=== PATIENT | male | born 1980 | race Caucasian/White ===

== ENCOUNTER 2017-01-14 10:35 | Emergency (ER) | payer SELFPAY ==
[~2017-01-14] VITALS: Ht 180.3 cm; Wt 85.0 kg
[~2017-01-14 10:35] MED LIST: HYDR-3533 PO; NAPR-576 PO; TAMS0.4C67 PO
[2017-01-14 10:37] VITALS: BP 116/72; PULSE 88; RESP 12; TEMP 97.8; O2SAT 96
[2017-01-14] MEDS ORDERED: IBUP800T23 PO (11:28)
[2017-01-14] MEDS ORDERED: CEPH-460 PO (11:28)
[2017-01-14] MEDS ORDERED: BACT800T5 PO (11:28)
[2017-01-14] MEDS ORDERED: CEPHALEXIN MONOHYDRATE 500 MG CAP PO ONE (11:30)
[2017-01-14] MEDS ORDERED: SULFAMETHOXAZOLE-TRIMETHOPRIM DS 800-160 MG TAB PO ONE (11:30)
[2017-01-14] MEDS ORDERED: IBUPROFEN 800 MG TAB PO ONE (11:30)
--- NOTE | 2017-01-14 11:30 | PD ---
HPI Chief Complaint: Skin Problem Time Seen by Provider: 11:25 Travel History International Travel<30 days: No Contact w/Intl Traveler<30days: No Traveled to known affect area: No History of Present Illness HPI 36-year-old male presents to the emergency department for evaluation of area of erythema to his upper groin area that started yesterday. He states it is tender. He states he had chills last night, but denies any documented fevers. He is currently afebrile. Patient does report a history of a spider bite to his right lower leg in the past. Patient denies any IV drug use. Patient denies having any chronic medical problems or taking any prescribed medications. He denies any drainage from the area. No other complaints. PFSH Past Medical History ADHD: Yes Bipolar Disorder: Yes Anxiety: Yes Depression: Yes Cardiovascular Problems: Yes (PALPATIONS) Diabetes: No Diminished Hearing: No Psychiatric: Yes Immunizations Current: Yes Migraines: Yes Seizures: Yes (FROM DETOX) Past Surgical History Tonsillectomy: Yes Social History Alcohol Use: No (PT STATES SOBER X1 MONTH) Tobacco Use: Yes (1 PPD) Substance Use: No (PT STATES SOBER X1 MONTH) Allergies-Medications (Allergen,Severity, Reaction): Coded Allergies: No Known Allergies (Verified , 01/14/17) Reported Meds & Prescriptions Reported Meds & Active Scripts Active Review of Systems Except as stated in HPI: all other systems reviewed are Neg Physical Exam Narrative GENERAL: Well-developed well-nourished male patient, ambulatory. Afebrile. SKIN: Warm and dry. Patient has an 8 cm x 6 cm area of erythema to the upper groin without fluctuance. HEAD: Normocephalic. Atraumatic. EYES: No scleral icterus. No injection or drainage. NECK: Supple, trachea midline. No JVD or lymphadenopathy. CARDIOVASCULAR: Regular rate and rhythm without murmurs, gallops, or rubs. RESPIRATORY: Breath sounds equal bilaterally. No accessory muscle use. Lungs sounds are clear to auscultation. GASTROINTESTINAL: Abdomen soft, non-tender, nondistended. MUSCULOSKELETAL: No cyanosis, or edema. BACK: Nontender without obvious deformity. No CVA tenderness. Data Data Last Documented VS Vital Signs Date Time Temp Pulse Resp B/P Pulse Ox O2 Delivery O2 Flow Rate FiO2 01/14/17 10:37 97.8 88 12 116/72 96 Room Air Orders Sulfamet-Trimeth Ds 800-160 Mg (Bactrim (01/14/17 11:30) Cephalexin (Keflex) (01/14/17 11:30) Ibuprofen (Motrin) (01/14/17 11:30) MDM Medical Decision Making Medical Screen Exam Complete: Yes Emergency Medical Condition: Yes Medical Record Reviewed: Yes Differential Diagnosis Cellulitis versus abscess versus cyst Narrative Course 36-year-old male presents to the emergency department for evaluation of an area of redness to his upper groin that started yesterday. Physical exam is consistent with cellulitis. There is no evidence of abscess on physical exam. Area is marked with a skin marker. He is given first dose of Bactrim and Keflex in the emergency department. He is instructed to return for any acute worsening of symptoms or if he notices any fluctuance that could be drained. Patient will be discharged with a prescription for Bactrim and Keflex as well as ibuprofen for pain. The patient is agreeable to this plan. The patient was discharged in stable condition with instructions, including return instructions and follow up instructions. Diagnosis Primary Impression: Cellulitis Qualified Code: L03.818 - Cellulitis of other specified site Referrals: Primary Care Physician call for appointment Patient Instructions: Cellulitis (ED), General Instructions Departure Forms: Tests/Procedures, Work Release Enter return to work date: Jan 16, 2017 Additional Instructions: Take antibiotics as directed until gone. Bactrim is free at [facility] (formerly [facility] Keflex is $4 at [facility]. Take ibuprofen as directed as needed with food for pain. Clean twice daily with soap and water. Warm, moist compresses. Follow-up with a primary care physician. Return to the emergency department for any acute worsening of symptoms including spreading of redness, abscess formation, fever. Med/Other Pt SpecificInfo: Prescription(s) given Scripts Ibuprofen 800 Mg [id number] Mg PO TID PRN (PAIN SCALE 1 TO 10) #21 TAB Ref 0 Prov:Georgette Conte 01/14/17 Cephalexin (Keflex)500 Mg [id number] Mg PO Q6H 10 Days Ref 0 Prov:Georgette Conte 01/14/17 Sulfamethoxazole-Trimethoprim (Bactrim DS)800-160 Mg Tab1 Tab PO BID #20 TAB Ref 0 Prov:Georgette Conte 01/14/17 Disposition: 01 DISCHARGE HOME Condition: Stable Georgette Conte Jan 14, 2017 11:30
== END 2017-01-14 12:13 | disposition home or self-care (01) ==
LOC: NEPB 10:35
DX: L03.818 Cellulitis of other sites (principal); F17.210 Nicotine dependence, cigarettes, uncomplicated
CPT/HCPCS: 99283

== ENCOUNTER 2017-01-15 17:00 | Inpatient (IN) | payer SELFPAY ==
[~2017-01-15] VITALS: Ht 180.3 cm; Wt 84.0 kg
[~2017-01-15 17:00] MED LIST changes: +BACT800T5 PO; +CEPH-460 PO; -HYDR-3533 PO; +IBUP800T23 PO; -NAPR-576 PO; -TAMS0.4C67 PO
[2017-01-15 17:01] VITALS: BP 124/79; PULSE 96; RESP 12; TEMP 98.1; O2SAT 100
[2017-01-16] VITALS (7 sets, daily range): BP systolic 94–137; BP diastolic 55–78; PULSE 61–85; RESP 16–20; TEMP 96; O2SAT 96–99
[2017-01-16] MEDS ORDERED: HYDROmorphone HCL PF 1 MG/ML VIAL IV PUSH ONE ×2 (01:00→02:00)
[2017-01-16] MEDS ORDERED: ONDANSETRON HCL 4 MG/2 ML VIAL IV PUSH ONE ×2 (01:00→15:33)
[2017-01-16] MEDS ORDERED: PIPERACIL-TAZO 4.5 GM PREMIX 100 ML IV ONE (01:00)
[2017-01-16] MEDS ORDERED: SODIUM CHLOR 0.9% 1000 ML INJ 1,000 ML IV ONE ×2 (01:00→03:15)
[2017-01-16] MEDS ORDERED: VANCOMYCIN INJ 1,750 MG in SODIUM CHLORID 0.9% 500 ML INJ 500 ML IV ONE (01:00)
[2017-01-16 01:31] LABS: AUTOMATED NEUTROPHIL # 7.8 TH/MM3 (1.8-7.7); BASOPHIL # 0.1 TH/MM3 (0-0.2); BASOPHIL % 0.8 % (0.0-2.0); EOSINOPHIL # 0.3 TH/MM3 (0-0.4); EOSINOPHIL % 2.7 % (0.0-4.0); HEMATOCRIT 41.3 % (39.0-51.0); HEMO FLAGS DIFF FINAL; LYMPHOCYTE # 2.1 TH/MM3 (1.0-4.8); MEAN CELL VOLUME 88.9 FL (80.0-100.0); MEAN CORPUSCULAR HEMOGLOBIN 30.9 PG (27.0-34.0); MEAN CORPUSCULAR HGB CONC 34.7 % (32.0-36.0); MONO % 8.1 % (0.0-8.0); NEUT % 69.4 % (16.0-70.0); PLATELET COUNT 241 TH/MM3 (150-450); RED BLOOD COUNT 4.64 MIL/MM3 (4.50-5.90); RED CELL DISTRIBUTION WIDTH 12.7 % (11.6-17.2); WHITE BLOOD COUNT 11.3 TH/MM3 (4.0-11.0)
[2017-01-16] MEDS ORDERED: IOHEXOL 350 MG/ML 10 ML VIAL (for RAD DIAG) IV ONE (01:36)
--- NOTE | 2017-01-16 01:57 | PD ---
HPI Chief Complaint: Lump, Cyst, Hernia Time Seen by Provider: 00:24 Travel History International Travel<30 days: No Contact w/Intl Traveler<30days: No Traveled to known affect area: No History of Present Illness HPI Patient's 36 years old. He arrives to the ER complaining of pain in the suprapubic abdomen where there is cellulitis. He was seen here yesterday and prescribed Bactrim and Keflex. He took 3 doses however the cellulitis has progressed. He states the pain is constant and severe. He reports a fever last night which improved after cold shower. A few months ago he developed a rash in the right leg however it drained spontaneously. He smokes tobacco however denies alcohol abuse. He quit using drugs, primarily cocaine, one year ago. Onset of erythematous change/cellulitis somewhat abrupt erupting over the course of about a day and half. PFSH Past Medical History ADHD: Yes Bipolar Disorder: Yes Anxiety: Yes Depression: Yes Cardiovascular Problems: Yes (PALPATIONS) Diabetes: No Diminished Hearing: No Psychiatric: Yes Immunizations Current: Yes Migraines: Yes Seizures: Yes (FROM DETOX) Tetanus Vaccination: Unknown Influenza Vaccination: No Past Surgical History Tonsillectomy: Yes Social History Alcohol Use: No (PT STATES SOBER X1 MONTH) Tobacco Use: Yes (1 PPD) Substance Use: No (PT STATES SOBER X1 MONTH) Allergies-Medications (Allergen,Severity, Reaction): Coded Allergies: Seroquel (Verified Allergy, Unknown, 01/16/17) Reported Meds & Prescriptions Reported Meds & Active Scripts Active Ibuprofen 800 Mg Tab 800 Mg PO TID PRN Keflex (Cephalexin) 500 Mg Cap 500 Mg PO Q6H 10 Days Bactrim DS (Sulfamethoxazole-Trimethoprim) 800-160 Mg Tab 1 Tab PO BID Review of Systems Except as stated in HPI: all other systems reviewed are Neg General / Constitutional: Positive: Fever Skin: Positive Rash Physical Exam Narrative GENERAL: 36-year-old male well-nourished well-developed SKIN: Warm and dry. Overlying the suprapubic abdomen there is about 10 cm of raised erythema with tenderness out of proportion to appearance. HEAD: Atraumatic. Normocephalic. EYES: Pupils equal and round. No scleral icterus. No injection or drainage. ENT: No nasal bleeding or discharge. Mucous membranes pink and moist. NECK: Trachea midline. No JVD. CARDIOVASCULAR: Regular rate and rhythm. No murmur appreciated. RESPIRATORY: No accessory muscle use. Clear to auscultation. Breath sounds equal bilaterally. GASTROINTESTINAL: Abdomen soft, non-tender, nondistended. Hepatic and splenic margins not palpable. MUSCULOSKELETAL: No obvious deformities. No clubbing. No cyanosis. No edema. NEUROLOGICAL: Awake and alert. No obvious cranial nerve deficits. Motor grossly within normal limits. Normal speech. PSYCHIATRIC: Fairly anxious. Fixated upon pain control. Data Data Last Documented VS Vital Signs Date Time Temp Pulse Resp B/P Pulse Ox O2 Delivery O2 Flow Rate FiO2 01/16/17 01:07 85 18 121/74 96 Room Air 01/15/17 17:01 98.1 Orders Basic Metabolic Panel (Bmp) (01/16/17 00:50) Complete Blood Count With Diff (01/16/17 00:50) Iv Access Insert/Monitor (01/16/17 00:50) Piperacil-Tazo 4.5 Gm Premix (Zosyn 4.5 (01/16/17 01:00) Vancomycin Inj (Vancomycin Inj) (01/16/17 01:00) Sodium Chlor 0.9% 1000 Ml Inj (Ns 1000 M (01/16/17 01:00) Hydromorphone Pf Inj (Dilaudid Pf Inj) (01/16/17 01:00) Ct Pelvis W Iv Contrast(Rout) (01/16/17 ) Ondansetron Inj (Zofran Inj) (01/16/17 01:00) Iohexol 350 Inj (Omnipaque 350 Inj) (01/16/17 01:36) Hydromorphone Pf Inj (Dilaudid Pf Inj) (01/16/17 02:00) Sodium Chlor 0.9% 1000 Ml Inj (Ns 1000 M (01/16/17 03:15) Admit Order (Ed Use Only) (01/16/17 03:10) Place In Observation (01/16/17 ) Vital Signs (Adult) Q4H (01/16/17 03:09) Activity Oob Ad Nia (01/16/17 03:09) Diet Heart Healthy (01/16/17 Breakfast) Sodium Chloride 0.9% Flush (Ns Flush) (01/16/17 03:15) Sodium Chloride 0.9% Flush (Ns Flush) (01/16/17 09:00) Case Management Consult (01/16/17 03:09) Scd Bilateral/Knee High KRISTIN.BID (01/16/17 03:09) Naloxone Inj (Narcan Inj) (01/16/17 03:15) Labs Laboratory Tests Test 01/16/17 01:10 White Blood Count 11.3 TH/MM3 Red Blood Count 4.64 MIL/MM3 Hemoglobin 14.3 GM/DL Hematocrit 41.3 % Mean Corpuscular Volume 88.9 FL Mean Corpuscular Hemoglobin 30.9 PG Mean Corpuscular Hemoglobin 34.7 % Concent Red Cell Distribution Width 12.7 % Platelet Count 241 TH/MM3 Mean Platelet Volume 7.8 FL Neutrophils (%) (Auto) 69.4 % Lymphocytes (%) (Auto) 19.0 % Monocytes (%) (Auto) 8.1 % Eosinophils (%) (Auto) 2.7 % Basophils (%) (Auto) 0.8 % Neutrophils # (Auto) 7.8 TH/MM3 Lymphocytes # (Auto) 2.1 TH/MM3 Monocytes # (Auto) 0.9 TH/MM3 Eosinophils # (Auto) 0.3 TH/MM3 Basophils # (Auto) 0.1 TH/MM3 CBC Comment DIFF FINAL Differential Comment Sodium Level 141 MEQ/L Potassium Level 4.3 MEQ/L Chloride Level 106 MEQ/L Carbon Dioxide Level 29.1 MEQ/L Anion Gap 6 MEQ/L Blood Urea Nitrogen 14 MG/DL Creatinine 0.85 MG/DL Estimat Glomerular Filtration 103 ML/MIN Rate Random Glucose 85 MG/DL Calcium Level 8.6 MG/DL [facility] Medical Decision Making Medical Screen Exam Complete: Yes Emergency Medical Condition: Yes Medical Record Reviewed: Yes Differential Diagnosis Cellulitis, abscess, sepsis Narrative Course CBC & BMP Diagram 01/16/17 01:10 Last [address] 01/16/17 0000 Signed Impressions: Service Date/Time: Monday, January 16, 2017 01:32 - CONCLUSION: 1. Subcutaneous cellulitis without abscess Murphy White MD The patient will be admitted for IV antibiotics. Perimeter of new area of cellulitis marked. d/w dr blood Diagnosis Primary Impression: Abdominal wall cellulitis Admitting Information Admitting Physician Requests: Observation Bernardino Caballero MD Jan 16, 2017 01:57
[2017-01-16 02:02] LABS: BICARBONATE 29.1 MEQ/L (21.0-32.0); POTASSIUM 4.3 MEQ/L (3.5-5.1)
--- NOTE | 2017-01-16 02:17 | RADRPT ---
EXAM DATE/TIME: 01/16/2017 01:32 [facility] COMPARISON: No previous studies available for comparison. INDICATIONS : Lower abdominal wall abscess , evaluate for cellulitis. IV CONTRAST: 71 cc Omnipaque 350 (iohexol) IV ORAL CONTRAST: No oral contrast ingested. RADIATION DOSE: 12.63 CTDIvol (mGy) MEDICAL HISTORY : Seizures. Cardiovascular disease SURGICAL HISTORY : None. ENCOUNTER: Initial ACUITY: 2 days PAIN SCALE: 10/10 LOCATION: pelvis TECHNIQUE: Volumetric scanning of the pelvis was performed. Using automated exposure control and adjustment of t he mA and/or kV according to patient size, radiation dose was kept as low as reasonably achievable to obtain optimal diagnostic quality images. FINDINGS: Examination of the pelvis demonstrates no evidence of free fluid or pelvic mass. No abnormally enlarg ed inguinal or retroperitoneal lymph nodes are present. The bladder is unremarkable. There is subcutaneous edema in the midline just above the symphysis characteristic of cellulitis. The re is no evidence of abscess. CONCLUSION: 1. Subcutaneous cellulitis without abscess Murphy White MD on January 16, 2017 at 2:14 Board Certified Radiologist. This report was verified electronically.
[2017-01-16] MEDS ORDERED: Vancomycin Consult Pharmacy 1 EA OTHER SCH (03:15)
[2017-01-16] MEDS ORDERED: NALOXONE HCL 0.4 MG/ML AMP IV PRN (03:15)
[2017-01-16] MEDS ORDERED: SODIUM CHLORIDE 0.9% FLUSH 5 ML FLUSH FLUSH PRN (03:15)
[2017-01-16] MEDS: HYDROmorphone HCL PF 1 MG/ML VIAL IV PUSH PRN ×2 (04:42→08:30)
[2017-01-16] MEDS ORDERED: PIPERACIL-TAZO 4.5 GM PREMIX 100 ML IV SCH (08:00)
[2017-01-16] MEDS: SODIUM CHLORIDE 0.9% FLUSH 5 ML FLUSH FLUSH SCH ×2 (08:31→21:00)
--- NOTE | 2017-01-16 10:58 | HHI.HP ---
HPI Service [facility] Primary Care Physician No Primary Care Physician Admission Diagnosis Abd Wall Cellulitis Diagnoses: Chief Complaint: Abdominal wall infection Travel History International Travel<30 Days: No Contact w/Intl Traveler <30 Da: No Traveled to Known Affected Are: No History of Present Illness 36-year-old male with no significant past medical history who presented for worsening abdominal wall cellulitis. The patient states that 2 days ago he began having pain, redness, and swelling in his lower abdominal wall. He came to the ER and was given a prescription for Bactrim and Keflex. He took this for a day, but the pain and swelling continued to get worse, so he came back to emergency room for evaluation. He states that he had fevers and chills during the night 2 nights ago, but none since. No drainage from the area. Pain is severe. No history of IVDA. Review of Systems Except as stated in HPI: all other systems reviewed are Neg Past Family Social History Past Medical History Patient denies Past Surgical History Patient denies Reported Medications Ibuprofen 800 Mg Tab 800 Mg PO TID PRN Keflex (Cephalexin) 500 Mg Cap 500 Mg PO Q6H 10 Days Bactrim DS (Sulfamethoxazole-Trimethoprim) 800-160 Mg Tab 1 Tab PO BID Allergies: Coded Allergies: Seroquel (Verified Allergy, Unknown, 01/16/17) Active Ordered Medications Current Medications Medications (Trade) Dose Ordered Sig/Huseyin Route Start Time Stop Time Status Last Admin (NS Flush) 2 ml UNSCH PRN FLUSH 01/16/17 03:15 (NS Flush) 2 ml BID FLUSH 01/16/17 09:00 01/16/17 08:31 Naloxone HCl 0.4 mg 0.4 mg UNSCH PRN IV 01/16/17 03:15 Pharmacy Profile Note 0 ml @ 0 mls/hr UNSCH OTHER 01/16/17 03:15 (Zosyn 4.5 Gm Premix) 100 ml @ 200 mls/hr Q6H IV 01/16/17 08:00 01/16/17 08:30 Hydromorphone HCl 0.5 mg 0.5 mg Q4H PRN IV PUSH 01/16/17 04:30 01/16/17 08:30 (Vancomycin Inj/ NS 500 ml Inj) 515 ml @ 250 mls/hr Q12H IV 01/16/17 18:00 Miscellaneous Information SPECIFIC LAB TO BE DRAWN:VANCOMYCIN TROUGH DATE TO... ONCE ONCE XX 01/18/17 05:45 01/18/17 05:46 Family History Father had kidney cancer Social History Smokes one pack per day He has a history of alcohol and drug abuse, sober for over 1 year Denies any history of IV drug abuse Physical Exam Vital Signs Vital Signs Date Time Temp Pulse Resp B/P Pulse Ox O2 Delivery O2 Flow Rate FiO2 01/16/17 08:34 75 20 134/56 97 Room Air 01/16/17 04:59 80 16 94/55 98 01/16/17 04:24 81 18 137/78 99 Room Air 01/16/17 01:07 85 18 121/74 96 Room Air 01/15/17 19:12 16 01/15/17 17:01 98.1 96 12 124/79 100 Room Air Physical Exam GENERAL: Well-developed well-nourished. In no acute distress. SKIN: Warm and dry. Lower abdominal wall/suprapubic area with circumferential erythema, induration, warmth. HEENT: Normocephalic. Pupils equal and round. Mucous membranes pink and moist. CARDIOVASCULAR: Regular rate and rhythm. No murmur appreciated. RESPIRATORY: No accessory muscle use. Clear to auscultation. Breath sounds equal bilaterally. GASTROINTESTINAL: Abdomen soft, non-tender, nondistended. Bowel sounds x4. MUSCULOSKELETAL: No obvious deformities. No clubbing or cyanosis. No edema. NEUROLOGICAL: Awake and alert. No focal neurological deficits. Moves upper and lower extremities spontaneously. Normal speech. PSYCHIATRIC: Slightly anxious mood and affect; insight and judgment normal. Laboratory Laboratory Tests Test 01/16/17 01:10 White Blood Count 11.3 Red Blood Count 4.64 Hemoglobin 14.3 Hematocrit 41.3 Mean Corpuscular Volume 88.9 Mean Corpuscular Hemoglobin 30.9 Mean Corpuscular Hemoglobin 34.7 Concent Red Cell Distribution Width 12.7 Platelet Count 241 Mean Platelet Volume 7.8 Neutrophils (%) (Auto) 69.4 Lymphocytes (%) (Auto) 19.0 Monocytes (%) (Auto) 8.1 Eosinophils (%) (Auto) 2.7 Basophils (%) (Auto) 0.8 Neutrophils # (Auto) 7.8 Lymphocytes # (Auto) 2.1 Monocytes # (Auto) 0.9 Eosinophils # (Auto) 0.3 Basophils # (Auto) 0.1 CBC Comment DIFF FINAL Differential Comment Sodium Level 141 Potassium Level 4.3 Chloride Level 106 Carbon Dioxide Level 29.1 Anion Gap 6 Blood Urea Nitrogen 14 Creatinine 0.85 Estimat Glomerular Filtration 103 Rate Random Glucose 85 Calcium Level 8.6 Result Diagram: 01/16/17 0110 01/16/17 0110 Imaging Last Impressions Pelvis CT 01/16/17 0000 Signed Impressions: Service Date/Time: Monday, January 16, 2017 01:32 - CONCLUSION: 1. Subcutaneous cellulitis without abscess Murphy White MD Assessment and Plan Assessment and Plan 36-year-old male with no significant past medical history who presented for worsening abdominal wall cellulitis Abdominal wall cellulitis: With failed outpatient therapy with Bactrim and Keflex. WBC 11.3, afebrile. Given IV vancomycin and Zosyn in the ED, continue vancomycin and IV ceftriaxone. Pelvis CT shows subcutaneous cellulitis without abscess, however on exam cannot rule out abscess formation. May need I&D and debridement, consult surgery for evaluation. Pain management with oral [place] and IV Toradol as needed. DVT prophylaxis: SCDs Written by Scotty Parr, acting as scribe for Dr. Garcia on 01/16/17 at 10:57. The documentation accurately reflects the work performed [id number] by me on at 10:57. Discussed Condition With Patient Scotty Parr Jan 16, 2017 10:58 Ronak Garcia DO Jan 16, 2017 22:29
[2017-01-16] MEDS ORDERED: ACETAMINOPHEN/HYDROcodone 325 MG/5 MG TAB PO PRN ×3 (11:00→18:15)
[2017-01-16] MEDS: cefTRIAXone INJ 1,000 MG in SODIUM CHLORIDE 0.9% INJ 100 ML IV SCH (11:19)
--- NOTE | 2017-01-16 12:40 | MB ---
cc: BRIE WALLS M.D. DATE OF CONSULTATION: 01/16/2017 REASON FOR CONSULTATION Suprapubic cellulitis, possible abscess. HISTORY OF PRESENT ILLNESS/BRIEF HISTORY This is a 36-year-old man otherwise pretty healthy with remote history of cocaine abuse, who over the last 2 days developed progressively increasing swelling, erythema and pain associated with an inflamed area in the suprapubic position of his lower abdomen. Denies any known injuries to this area and no bug bites, no spider bites, no ingrown hair. He was seen in emergency department and was provided with outpatient oral antibiotics, Bactrim and Keflex and had increasing swelling and discomfort and came back to the ER. He had a CT scan which did not show drainable abscess, however, with increasing induration and pain surgical evaluation was requested. ALLERGIES The patient has no known drug allergies. He does have ADHD and says he gets opposite reactions to some medications, sedative medications make him more hyper and he has those adverse type reactions but no actual allergy. PAST MEDICAL HISTORY His previous medical history is significant just for that above. PAST SURGICAL HISTORY Previous surgeries include tonsillectomy. MEDICATION He does not take any routine medications but has been on I believe it is Bactrim and sulfa. He was given vancomycin and ceftriaxone as well as Toradol and [place] since he has been here in the emergency department. 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 He admits to a history of cocaine abuse, has not used cocaine in over a year. Denies alcohol abuse. Denies IV drug use. He has had no prior history of narcotic use. REVIEW OF SYSTEMS He denies unusual bleeding tendencies. He has no visual or hearing, sinus problems. No history of asthma, bronchitis, pneumonia, history of heart attack, chest pain. He has had palpitations in the past. He denies acid reflux, chronic constipation or diarrhea, blood in the urine or stool, liver, kidney problems. He has no history of strokes. He has no history of diabetes. He has had seizure with withdrawal in the past as documented in the chart. PHYSICAL EXAMINATION GENERAL: A young man who is in mild distress. He is pleasant and cooperative with the exam, eventually accompanied by his father. VITAL SIGNS: Temperature is 98, pulse 75, respiratory rate 20, blood pressure 134/56, O2 sats 96-100% on room air. HEENT: Normocephalic, atraumatic. His pupils are 1-2, round and sluggishly reactive to light. His sclerae are anicteric. Oropharynx is clear. He has good dentition. There is no oral mucosal lesions. NECK: Neck is supple without adenopathy. He has a midline trachea. No jugular venous distension. LUNGS: Lungs are clear and equal anteriorly bilaterally. HEART: Heart sounds are regular without murmur, rub or gallop. ABDOMEN: His abdomen is soft and nondistended. He has an area of erythema in the lower abdomen, the suprapubic area, most intense, indurated tender areas about 6 x 8 cm with about a 2-3 cm margin of a more faint surrounding erythema that has increased since the original marking in the ER a day or two ago. He has no genital abnormalities. EXTREMITIES: His extremities show no cyanosis, clubbing or edema. He has equal radial pulses. NEUROLOGIC: Neurologically he is awake, alert, oriented. He has equal bilateral professor of geology strength and no gross motor sensory deficit. LABORATORY DATA His white count is 11.3 with 69% neutrophils. Hemoglobin is 14.3, platelet count is 241, potassium is 4.3, creatinine is 0.85. IMAGING STUDIES Discussed above. ASSESSMENT A 36-year-old with a cellulitis and induration and probable emerging abscess in the suprapubic position. It is not improving on antibiotic therapy. I have offered incision and drainage and he wishes to proceed. The procedure in detail plus expectations for recovery were reviewed in detail with the patient and his father, they understand. Surgery is planned for this afternoon. MD CARA Guy/RUSS /12:13 PM /12:24 PM
[2017-01-16] MEDS ORDERED: PROPOFOL 200 MG/20 ML AMP IV ONE (15:33)
[2017-01-16] MEDS ORDERED: FAMOTIDINE 20 MG/2 ML VIAL ONE (16:39)
[2017-01-16] MEDS ORDERED: ACETAMINOPHEN 1000 MG/100 ML VIAL IV ONE (17:07)
[2017-01-16] MEDS ORDERED: HYDROmorphone HCL PF 2 MG/ML VIAL ONE (17:08)
[2017-01-16] MEDS ORDERED: MIDAZOLAM HCL 2 MG/2 ML VIAL ONE (17:08)
[2017-01-16] MEDS ORDERED: BUPIVACAINE/EPINEPHRINE 0.5% PF 30 ML VIAL INFIL ONE (18:02)
[2017-01-16] MEDS ORDERED: SODIUM CHLORIDE 0.9% FLUSH 5 ML FLUSH IVF PRN (18:15)
[2017-01-16] MEDS ORDERED: Post-op Orders (for Pharmacy) MISC XX ONE (18:15)
[2017-01-16] MEDS ORDERED: ONDANSETRON HCL 4 MG/2 ML VIAL IV PRN (18:15)
[2017-01-16] MEDS ORDERED: MAGNESIUM HYDROXIDE SUSP 30 ML CUP PO PRN (18:15)
--- NOTE | 2017-01-16 18:15 | PD.OP ---
Operative Report Date of Surgery: Jan 16, 2017 Preoperative Diagnosis: suprapubic abscess Postoperative Diagnosis: same Procedure: I and D SP abscess Anesthesia: general Surgeon: Murphy Martinez Manager Consumer Insights(s): MS Adarsh3 Operation and Findings: fluid for gram stain, C and s Murphy Martinez MD Jan 16, 2017 18:15
[2017-01-16] MEDS: VANCOMYCIN INJ 1,500 MG in SODIUM CHLORID 0.9% 500 ML INJ 500 ML IV SCH (18:30)
[2017-01-16] MEDS ORDERED: *MEPERIDINE 25 MG INJ VIAL PERIprocedural Use ONLY ONE (18:35)
[2017-01-16] MEDS ORDERED: *morphine SULFATE 8 MG/ML PERIprocedure ONLY ONE ×2 (18:43→18:51)
[2017-01-16] MEDS ORDERED: *HYDROmorphone PF 1 MG VIAL PERIprocedural Use ONLY ONE ×4 (19:01→19:58)
[2017-01-16] MEDS: SODIUM CHLORIDE 0.9% FLUSH 5 ML FLUSH IVF SCH (21:00)
[2017-01-16] MEDS ORDERED: HYDROmorphone HCL PF 1 MG/ML VIAL ONE (22:04)
[2017-01-16] MEDS: ACETAMINOPHEN/HYDROcodone 325 MG/5 MG TAB PO PRN (23:36)
[2017-01-16] MEDS ORDERED: ZOLPIDEM TARTRATE 10 MG TAB PO PRN (23:45)
[2017-01-17] MEDS: DOCUSATE SODIUM 100 MG CAP PO SCH ×2 (00:21→09:26)
[2017-01-17 04:00] VITALS: BP 108/63; PULSE 72; RESP 18; TEMP 96.2; O2SAT 98
[2017-01-17] MEDS: ACETAMINOPHEN/HYDROcodone 325 MG/5 MG TAB PO PRN ×3 (05:10→14:06)
[2017-01-17] MEDS: KETOROLAC TROMETHAMINE 30 MG/ML (IVP) VIAL IV PUSH PRN ×2 (06:18→11:17)
[2017-01-17] MEDS: VANCOMYCIN INJ 1,500 MG in SODIUM CHLORID 0.9% 500 ML INJ 500 ML IV SCH (06:18)
[2017-01-17 07:40] VITALS: BP 104/67; PULSE 76; RESP 18; TEMP 97.7; O2SAT 99
[2017-01-17 08:12] VITALS: O2SAT 98
--- NOTE | 2017-01-17 09:03 | HHI.PR ---
Subjective Remarks F-U suprapubic abscess 01/17/17-patient seen and examined; s/p I&D of SP abscess on 01/16; Afebrile but quite anxious. Case discussed with General Surgeon. Objective Vitals Vital Signs Date Time Temp Pulse Resp B/P Pulse Ox O2 Delivery O2 Flow Rate FiO2 01/17/17 08:12 98 21 01/17/17 07:40 97.7 76 18 104/67 99 01/17/17 06:18 16 01/17/17 04:00 96.2 72 18 108/63 98 01/16/17 23:30 96.0 61 18 101/61 97 01/16/17 20:03 15 01/16/17 20:03 15 01/16/17 20:00 72 16 117/62 96 Room Air 01/16/17 19:31 15 01/16/17 19:31 15 01/16/17 19:30 97.6 70 15 112/63 96 Room Air 01/16/17 19:15 69 15 118/59 97 Room Air 01/16/17 19:00 74 15 113/73 97 Room Air 01/16/17 18:58 15 01/16/17 18:48 15 01/16/17 18:45 74 15 114/84 96 Room Air 01/16/17 18:30 76 14 115/79 100 Nasal Cannula 3 01/16/17 18:20 98.4 61 8 115/62 98 Nasal Cannula 3 01/16/17 15:29 69 18 114/56 99 Room Air 01/16/17 12:14 76 18 130/59 96 Room Air I/O 01/16/17 01/16/17 01/16/17 01/17/17 01/17/17 01/17/17 07:00 15:00 23:00 07:00 15:00 23:00 Intake Total 1000 ml 150 ml Output Total 40 ml Balance 960 ml 150 ml Intake Oral 150 ml IV Total 500 ml Other 500 ml Output Estimated Blood Loss 40 ml # Voids 0 2 Result Diagram: 01/16/17 0110 01/16/17 0110 Imaging Last Impressions Pelvis CT 01/16/17 0000 Signed Impressions: Service Date/Time: Monday, January 16, 2017 01:32 - CONCLUSION: 1. Subcutaneous cellulitis without abscess Murphy White MD Objective Remarks GENERAL: NAD SKIN: Warm and dry. HEAD: Normocephalic. EYES: No scleral icterus. No injection or drainage. NECK: Supple, trachea midline. No JVD or lymphadenopathy. CARDIOVASCULAR: Regular rate and rhythm without murmurs, gallops, or rubs. RESPIRATORY: Breath sounds equal bilaterally. No accessory muscle use. GASTROINTESTINAL: Abdomen soft, non-tender, nondistended. dressing over suprapubic abscess MUSCULOSKELETAL: No cyanosis, or edema. BACK: Nontender without obvious deformity. No CVA tenderness. Procedures I and D SP abscess 01/16/17 A/P Problem List: (1) Abscess, suprapubic ICD Code: L02.219 Status: Acute Assessment and Plan 36 yrs old man with Suprapubic abscess: Pelvis CT shows subcutaneous cellulitis without abscess, however on exam cannot rule out abscess formation. s/p I and D SP abscess . Currently on Vancomycin and Rocephin. Will discharge home on Bactrim DS and Keflex pending culture. Pain management with oral [place] and IV Toradol as needed. DVT prophylaxis: SCDs Discharge Planning Discharge patient to home Condition on discharge: Improved Regular Diet as tolerated Ad Nia activity Rx written:see EMR Follow-up with primary care physician in 1 week Harry Gong MD Jan 17, 2017 09:02 DVT prophylaxis: Harry Sosa MD Jan 17, 2017 09:02
[2017-01-17] MEDS ORDERED: HYDR-3516 PO (09:08)
[2017-01-17] MEDS: SODIUM CHLORIDE 0.9% FLUSH 5 ML FLUSH FLUSH SCH (09:26)
[2017-01-17] MEDS: SODIUM CHLORIDE 0.9% FLUSH 5 ML FLUSH IVF SCH (09:27)
[2017-01-17] MEDS: cefTRIAXone INJ 1,000 MG in SODIUM CHLORIDE 0.9% INJ 100 ML IV SCH (11:53)
[2017-01-17 12:00] VITALS: BP_SYST 102; BP_SYST 69; BP_DIAS 69; PULSE 74; RESP 15; TEMP 97.2; O2SAT 98
--- NOTE | 2017-01-17 13:39 | HHI.FF ---
Face to Face Verification Diagnosis: (1) Abscess, suprapubic Home Health Nursing Order: Wound care and dressing changes I have seen patient Ebenezer Batista on 01/17/17. My clinical findings support the need for the requested home health care services because: Limited ability to care for self I certify that my clinical findings support that this patient is homebound because: Post-op weakness Harry Gong MD Jan 17, 2017 13:39
[2017-01-18] MEDS ORDERED: PHARMACY ORDERED LAB XX ONE (05:45)
--- NOTE | 2017-01-29 23:06 | MP ---
cc: BRIE WALLS M.D. RE-DICTATION DATE OF SURGERY: 01/16/2017 PREOPERATIVE DIAGNOSIS: Suprapubic abscess. POSTOPERATIVE DIAGNOSIS: Suprapubic abscess. OPERATION: Incision and drainage, suprapubic abscess. SURGEON: Dr. Brie Walls ANESTHESIA: General. INDICATIONS: The patient is a very pleasant 36 year-old gentleman who has developed increasing swelling and discomfort in the suprapubic area. There was no report of trauma, bug bites, spider bite, or scratch in this location. He has been on antibiotics with worsening symptoms. He has had radiologic evaluation which did not show a drainable fluid collection. However, he has a fluctuant area coming to a point on his skin. He is very tender. He wished to have surgical drainage. INTRAOPERATIVE FINDINGS Milky white nonodorous fluid sent for Gram stain, culture and sensitivity. ESTIMATED BLOOD LOSS: Less than 10 mL DESCRIPTION OF PROCEDURE IN DETAIL The patient identified as Ebenezer Batista, taken to the operating room, placed in supine position. Sequential compression devices were placed on bilateral lower extremities. Following the induction of adequate general anesthesia the patient's lower abdomen, suprapubic area were prepped and draped in the usual sterile fashion with Betadine. A time-out procedure was performed. Following completion of time-out procedure to everyone's satisfaction within the room, proposed incision was infiltrated with local anesthetic. About a 5-6 cm transverse incision in the suprapubic area was made with a scalpel and down into an abscess cavity. There was maybe 10 to 15 cc of purulent fluid which was drain. The fluid was taken on a swab for Gram stain, culture and sensitivity. The surgeon's finger went into the wound to break up any loculations and to explore the depths of the wound to make sure there was no left undrained fluid. The wound was copiously irrigated with saline. Once no further drainable tissue was present, the wound was dressed with 1/2 inch iodoform gauze. The wound was made slightly smaller replacing a single 3-0 nylon suture. Dry sterile dressing was placed. The patient tolerated the procedure without apparent complication. Sponge, needle and instrument counts were correct at the end of the case. MD CARA Guy/REE /1:55 PM /10:14 PM
== END 2017-01-17 16:48 | disposition home or self-care (01) | DRG 581 ==
LOC: NEPC 17:00 → NEDA 01-16 03:11 → NEDH 01-16 08:16 → OBSVTOIN 01-16 10:53 → HOCA 01-16 22:52
PROVIDERS: ADMIT Hospitalist; ATTEND Hospitalist
PROC: 0J980ZZ Drainage of Abdomen Subcutaneous Tissue and Fascia, Open Approach (ICD-10-PCS; principal; 2017-01-16 17:43)
DX: L02.211 Cutaneous abscess of abdominal wall (principal); F31.9 Bipolar disorder, unspecified; F17.210 Nicotine dependence, cigarettes, uncomplicated; L03.311 Cellulitis of abdominal wall; F90.9 Attention-deficit hyperactivity disorder, unspecified type
CPT/HCPCS: 72193; 80048; 85025; 86403; 87070; 87147; 87186; 87205; 96365; 96368; 96375; 96376; J0131; J0696; J1170; J1885; J2175; J2250; J2270; J2405; J2543; J3010; J3370; J7030; J7040; Q9967

== ENCOUNTER 2018-05-11 15:19 | Emergency (ER) | payer SELFPAY ==
[~2018-05-11] VITALS: Ht 167.6 cm; Wt 73.0 kg
[~2018-05-11 15:19] MED LIST changes: +HYDR-3516 PO; +IBUP1TAB7 PO; -IBUP800T23 PO
[2018-05-11 15:24] VITALS: BP 128/74; PULSE 81; RESP 20; TEMP 98.2; O2SAT 98
[2018-05-11] MEDS ORDERED: SODIUM CHLORIDE 0.9% FLUSH 10 ML FLUSH IVF PRN (15:30)
[2018-05-11] MEDS ORDERED: SODIUM CHLOR 0.9% 1000 ML INJ 1,000 ML IV ONE (15:30)
[2018-05-11] MEDS ORDERED: ONDANSETRON HCL 4 MG/2 ML VIAL IV PUSH ONE (15:45)
[2018-05-11] MEDS ORDERED: KETOROLAC TROMETHAMINE 30 MG/ML (IVP) VIAL IV PUSH ONE (15:45)
[2018-05-11] MEDS ORDERED: cloNIDine HCL 0.1 MG TAB PO ONE (15:45)
--- NOTE | 2018-05-11 15:45 | PD ---
HPI . Detox Chief Complaint: GI Complaint Time Seen by Provider: 15:22 Travel History International Travel<30 days: No Contact w/Intl Traveler<30days: No Traveled to known affect area: No History of Present Illness HPI This patient presents stating that he is detoxing from heroin. Last use was about 44 hours ago. He had the onset of symptoms 12 hours ago. He is complaining with numerous episodes of emesis and diarrhea as well as a seizure this morning. He reports that he has detox before but always under supervision at a detox facility. The severity of the emesis and then about 10-15 episodes of each. Symptoms have been persistent for the last 12 hours. PFSH Past Medical History ADHD: Yes Bipolar Disorder: Yes Anxiety: Yes Depression: Yes Cardiovascular Problems: Yes (PALPATIONS) Diabetes: No Diminished Hearing: No Musculoskeletal: Yes (SEVERAL BROKEN BONES) Psychiatric: Yes Immunizations Current: Yes Migraines: Yes Seizures: Yes (FROM DETOX) Tetanus Vaccination: < 5 Years Past Surgical History Surgical History: No Previous Surgery Tonsillectomy: Yes Social History Alcohol Use: No Tobacco Use: Yes (1 PPD) Substance Use: Yes (HEROIN) Allergies-Medications (Allergen,Severity, Reaction): Coded Allergies: quetiapine (Unverified Allergy, Unknown, 05/11/18) *MDRO Multi-Drug Resistant Organism (Verified Adverse Reaction, Unknown, ) MRSA (wound) - 01/16/17 Reported Meds & Prescriptions Reported Meds & Active Scripts Active No Active Prescriptions or Reported Medications Review of Systems Except as stated in HPI: all other systems reviewed are Neg General / Constitutional: No: Fever, Chills Gastrointestinal: Positive: Nausea, Vomiting, Diarrhea, No: Abdominal Pain Musculoskeletal: No: Myalgias, Arthralgias Neurologic: No: Tremor Psychiatric: No: Anxiety Physical Exam Narrative GENERAL: Awake and alert. Vital signs were unremarkable. Heart rate is 81. SKIN: warm/dry. No piloerection noted. HEAD: Normocephalic. Atraumatic. EYES: Pupils equal and round. Extraocular movements are intact. Pupils are not enlarged. ENT: Mucous membranes pink and moist. NECK: Supple. Full range of motion without pain.. CARDIOVASCULAR: Regular rate and rhythm. Heart sounds are normal. RESPIRATORY: No accessory muscle use. Clear to auscultation. Breath sounds equal bilaterally. GASTROINTESTINAL: Abdomen soft. Nontender. Bowel sounds present. Nondistended. MUSCULOSKELETAL: No obvious deformities. Normal muscle tone. NEUROLOGICAL: Awake and alert. No obvious cranial nerve deficits. Motor grossly within normal limits. Normal speech. PSYCHIATRIC: Appropriate mood and affect; insight and judgment normal. Data Data Last Documented VS Vital Signs Date Time Temp Pulse Resp B/P (MAP) Pulse Ox O2 Delivery O2 Flow Rate FiO2 05/11/18 19:27 76 16 126/59 (81) 99 Room Air 05/11/18 15:24 98.2 Orders Orders Complete Blood Count With Diff (05/11/18 15:27) Comprehensive Metabolic Panel (05/11/18 15:27) Thyroid Stimulating Hormone (05/11/18 15:27) Iv Access Insert/Monitor (05/11/18 15:27) Psych Screen (05/11/18 15:27) Sodium Chloride 0.9% Flush (Ns Flush) (05/11/18 15:30) Drug Screen, Random Urine (05/11/18:27) Alcohol (Ethanol) (05/11/18 15:27) Sodium Chlor 0.9% 1000 Ml Inj (Ns 1000 M (05/11/18 15:30) Ondansetron Inj (Zofran Inj) (05/11/18 15:45) Ketorolac Inj (Toradol Inj) (05/11/18 15:45) Clonidine (Catapres) (05/11/18 15:45) Promethazine Inj (Phenergan Inj) (05/11/18 16:00) Cath For Specimen (05/11/18 16:23) Clonidine (Catapres) (05/11/18 19:30) Promethazine Inj (Phenergan Inj) (05/11/18 19:30) Ketorolac Inj (Toradol Inj) (05/11/18 19:30) Labs Laboratory Tests Test 05/11/18 16:05 05/11/18 16:55 White Blood Count 9.8 TH/MM3 Red Blood Count 4.60 MIL/MM3 Hemoglobin 14.6 GM/DL Hematocrit 40.6 % Mean Corpuscular Volume 88.2 FL Mean Corpuscular Hemoglobin 31.7 PG Mean Corpuscular Hemoglobin Concent 35.9 % Red Cell Distribution Width 12.8 % Platelet Count 340 TH/MM3 Mean Platelet Volume 7.5 FL Neutrophils (%) (Auto) 75.8 % Lymphocytes (%) (Auto) 17.1 % Monocytes (%) (Auto) 6.6 % Eosinophils (%) (Auto) 0.1 % Basophils (%) (Auto) 0.4 % Neutrophils # (Auto) 7.4 TH/MM3 Lymphocytes # (Auto) 1.7 TH/MM3 Monocytes # (Auto) 0.6 TH/MM3 Eosinophils # (Auto) 0.0 TH/MM3 Basophils # (Auto) 0.0 TH/MM3 CBC Comment DIFF FINAL Differential Comment Blood Urea Nitrogen 8 MG/DL Creatinine 0.71 MG/DL Random Glucose 96 MG/DL Total Protein 7.0 GM/DL Albumin 3.4 GM/DL Calcium Level 8.9 MG/DL Alkaline Phosphatase 71 U/L Aspartate Amino Transf (AST/SGOT) 15 U/L Alanine Aminotransferase (ALT/SGPT) 20 U/L Total Bilirubin 0.4 MG/DL Sodium Level 139 MEQ/L Potassium Level 3.9 MEQ/L Chloride Level 103 MEQ/L Carbon Dioxide Level 26.8 MEQ/L Anion Gap 9 MEQ/L Estimat Glomerular Filtration Rate 126 ML/MIN Thyroid Stimulating Hormone 3rd Gen 0.074 uIU/ML Ethyl Alcohol Level LESS THAN 3 MG/DL Urine Opiates Screen NEG Urine Barbiturates Screen NEG Urine Amphetamines Screen NEG Urine Benzodiazepines Screen NEG Urine Cocaine Screen NEG Urine Cannabinoids Screen POS MDM Medical Decision Making Medical Screen Exam Complete: Yes Emergency Medical Condition: Yes Differential Diagnosis Differential diagnosis includes but is not limited to viral gastritis, food poisoning, pancreatitis, pneumonia, hepatitis, acute coronary syndrome, Narrative Course This patient presents with vomiting and diarrhea. Onset was 12 hours ago. He feels that he is detoxing from heroin. Last use of her one was 44 hours ago. I have queried up-to-date. COWS score is 7. He will be given clonidine 0.1 mg p.o. He will be given Toradol and Zofran for symptomatic relief. Medical screening exam is in process. We will request a psych screening for assistance in getting him to a detox facility. CBC & BMP Diagram 05/11/18 16:05 Total Protein 7.0, Albumin 3.4, Calcium Level 8.9, Alkaline Phosphatase 71, Aspartate Amino Transf (AST/SGOT) 15, Alanine Aminotransferase (ALT/SGPT) 20, Total Bilirubin 0.4 Alcohol level is negative and tox screen is positive for THC. This patient is medically clear for evaluation by psychiatry. I suspect that this patient will be here overnight. I have ordered clonidine scheduled, Phenergan as needed and Toradol as needed. Diagnosis Primary Impression: Heroin withdrawal Scripts No Active Prescriptions or Reported Meds Condition: Cira Willams MD May 11, 2018 15:45
[2018-05-11] MEDS ORDERED: PROMETHAZINE INJ 25 MG/ML VIAL IM ONE (16:00)
[2018-05-11 16:21] LABS: AUTOMATED NEUTROPHIL # 7.4 TH/MM3 (1.8-7.7); BASOPHIL % 0.4 % (0.0-2.0); EOSINOPHIL % 0.1 % (0.0-4.0); HEMATOCRIT 40.6 % (39.0-51.0); HEMOGLOBIN 14.6 GM/DL (13.0-17.0); LYMPH % 17.1 % (9.0-44.0); LYMPHOCYTE # 1.7 TH/MM3 (1.0-4.8); MEAN CELL VOLUME 88.2 FL (80.0-100.0); MEAN CORPUSCULAR HEMOGLOBIN 31.7 PG (27.0-34.0); MEAN CORPUSCULAR HGB CONC 35.9 % (32.0-36.0); MEAN PLATELET VOLUME 7.5 FL (7.0-11.0); MONO % 6.6 % (0.0-8.0); MONOCYTE # 0.6 TH/MM3 (0-0.9); NEUT % 75.8 % (16.0-70.0); PLATELET COUNT 340 TH/MM3 (150-450); RED CELL DISTRIBUTION WIDTH 12.8 % (11.6-17.2); WHITE BLOOD COUNT 9.8 TH/MM3 (4.0-11.0)
[2018-05-11 16:46] LABS: ALBUMIN 3.4 GM/DL (3.4-5.0); ALT (GPT) 20 U/L (12-78); AST (GOT) 15 U/L (15-37); BICARBONATE 26.8 MEQ/L (21.0-32.0); BLOOD UREA NITROGEN 8 MG/DL (7-18); CALCIUM 8.9 MG/DL (8.5-10.1); CHLORIDE 103 MEQ/L (98-107); CREATININE 0.71 MG/DL (0.60-1.30); GLOMERULAR FILTRATION RATE 126 ML/MIN (>89); GLUCOSE,RANDOM 96 MG/DL (74-106); SODIUM (NA) 139 MEQ/L (136-145)
[2018-05-11 16:56] LABS: ALKALINE PHOSPHATASE 71 U/L (45-117); TOTAL BILIRUBIN ADULT 0.4 MG/DL (0.2-1.0)
[2018-05-11 18:00] VITALS: BP 145/88; PULSE 82; RESP 19; O2SAT 97
[2018-05-11 19:27] VITALS: BP 126/59; PULSE 76; RESP 16; O2SAT 99
[2018-05-11] MEDS ORDERED: PROMETHAZINE INJ 25 MG/ML VIAL IM PRN (19:30)
[2018-05-11] MEDS ORDERED: cloNIDine HCL 0.1 MG TAB PO SCH (19:30)
[2018-05-11] MEDS ORDERED: KETOROLAC TROMETHAMINE 30 MG/ML (IVP) VIAL IV PUSH PRN (19:30)
== END 2018-05-11 23:03 | disposition home or self-care (01) ==
LOC: NEPD 15:19
DX: F11.23 Opioid dependence with withdrawal (principal); F31.9 Bipolar disorder, unspecified; F17.210 Nicotine dependence, cigarettes, uncomplicated; Z88.8 Allergy status to other drugs, medicaments and biological substances
CPT/HCPCS: 80053; 80307; 84443; 85025; 96372; 96374; 99284; J1885; J2550; J7030